=== PATIENT | female | born 1970 | race Caucasian/White ===

== ENCOUNTER 2018-05-26 03:23 | Emergency (ER) | payer OTHER, MEDICARE ==
[~2018-05-26] VITALS: Ht 175.3 cm; Wt 83.9 kg
--- NOTE | 2018-05-26 04:40 | ED HEADACHE COMPLAINT ---
History of Present Illness General Chief Complaint: Headache Stated Complaint: MIGRAINE Source: patient, family, old records Exam Limitations: no limitations Vital Signs & Intake/Output Vital Signs & Intake/Output Vital Signs Date Time Temp Pulse Resp B/P B/P Pulse O2 O2 Flow FiO2 Mean Ox Delivery Rate 05/26 0613 96.6 05/26 0532 96.6 82 20 129/72 96 Room Air 05/26 0330 98.4 88 18 142/88 99 Room Air Allergies Coded Allergies: Penicillins (UNKNOWN 05/26/18) ketorolac (From TORADOL) (UJNKNOWN 05/26/18) prochlorperazine (From COMPAZINE) (UNKNOWN 05/26/18) Reconcile Medications Hydromorphone HCl (Dilaudid) 2 MG TABLET 1-2 TAB PO Q4H PRN pain Triage Note: TRIAGE: PATIENT TO ER FROM HOME REPORTING +MIGRAINE PAST FEW HOURS, HX OF SAME. REPORTS HAS 2 NEUROLOGISTS IN [place] AND 2 IN [place]. TAKES [facility]ICO Q MONTH FOR HX HEMOPALEGIC MIGRAINES. REPORTS USUALLY GET RELIEF W "FLUIDS, BENADRYL, DILAUDID AND PHENERGAN." +NAUSEA AND VOMITTING. REPORTS IS CURRENTLY ON DISABILITY FOR SAME. Triage Nurses Notes Reviewed? yes Onset: Just prior to arrival Duration: hour(s):, constant, continues in ED, getting worse Timing: recent history Quality/Severity: severe, constant, throbbing Head Injury Location: frontal, temporal No Modifying Factors: none Associated Symptoms: nausea/vomiting, numbness in legs/feet LMP (ages 10-50): unknown : No Patient currently breastfeeds: No HPI: Several hours prior to admission patient awoke with typical hemiplegic migraine with left retro-orbital sharp throbbing pain and tingling in the upper and lower extremity. She also complains of photophobia and nausea. She denies fever chills vomiting diarrhea chest pain cough shortness of breath dysuria rash bleeding. Past History Travel History Traveled to [place] past 21 day No Medical History Any Pertinent Medical History? see below for history Neurological: HEMOPALEGIC MIGRAINES EENT: NONE Cardiovascular: NONE Respiratory: NONE Gastrointestinal: NONE Hepatic: NONE Renal: NONE Musculoskeletal: NONE Psychiatric: NONE Endocrine: NONE Blood Disorders: NONE Cancer(s): NONE [employer]ER/Reproductive: NONE Surgical History Surgical History: non-contributory Psychosocial History What is your primary language Luxembourgish Tobacco Use: Quit >30 days ago Family History Hx Contributory? No Review of Systems Review of Systems Constitutional: Reports: no symptoms. Eyes: Reports: no symptoms. Ears, Nose, Throat, Mouth: Reports: no symptoms. Respiratory: Reports: no symptoms. Cardiovascular: Reports: no symptoms. Gastrointestinal/Abdominal: Reports: see HPI, nausea. Genitourinary: Reports: no symptoms. Musculoskeletal: Reports: no symptoms. Skin: Reports: no symptoms. Neurological/Psychological: Reports: see HPI, headache, numbness. Hematologic/Endocrine: Reports: no symptoms. Endocrine: Reports: no symptoms. Immunologic/Allergic: Reports: no symptoms. All Other Systems: Reviewed and Negative Physical Exam Physical Exam General Appearance: well developed/nourished, alert, awake, anxious, severe distress, obese Head: atraumatic, normal appearance Eyes: Bilateral: normal appearance, PERRL, EOMI. Ears, Nose, Throat: normal pharynx, normal ENT inspection, hearing grossly normal Neck: normal inspection, supple, full range of motion, trachea midline Respiratory: normal breath sounds, chest non-tender, no respiratory distress, quiet respiration, lungs clear Cardiovascular: regular rate/rhythm, normal peripheral pulses, norml femoral pulses equa Gastrointestinal: normal bowel sounds, soft, non-tender, no organomegaly Back: normal inspection, normal range of motion Extremities: normal inspection, normal capillary refill, normal range of motion, no edema Psychiatric: awake, alert, oriented x 3 Cranial Nerves: normal hearing, normal speech, PERRL Coordination/Gait: normal finger to nose, normal gait Motor/Sensory: no motor/sensory deficits Reflexes: 2+: bicep (R), bicep (L). Skin: intact, normal color, warm/dry Lymphatic: no anterior cervical isma Core Measures Sepsis Present: No Sepsis Focused Exam Completed? No Progress Differential Diagnosis: cluster BOO, migraine BOO, tension BOO Plan of Care: Current Medications Sig/Jamee Start time Last Medication Dose Stop Time Status Admin Hydromorphone HCl 1 MG ONCE ONE 05/26 530 [facility] 05/26 (Dilaudid) 05/26 0531 0557 Promethazine HCl 25 MG ONCE ONE 05/26 530 [facility] 05/26 (Phenergen) 05/26 531 0557 Departure Departure Disposition: HOME OR SELF CARE Condition: Stable Clinical Impression Primary Impression: Migraine Referrals: Unknown (PCP/Family) Departure Forms: Customer Survey General Discharge Information Prescriptions: Current Visit Scripts Hydromorphone HCl (Dilaudid) 1-2 TAB PO Q4H PRN pain #10 TAB
[2018-05-26 05:32] VITALS: BP 129/72
[2018-05-26] MEDS ORDERED: DILAUDID2 M1 PO (06:21)
== END 2018-05-26 06:31 ==
LOC: ERH 03:23
DX: G43.909 Migraine, unspecified, not intractable, without status migrainosus (principal); R20.2 Paresthesia of skin; Z87.891 Personal history of nicotine dependence
CPT/HCPCS: 96361; 96374; 96375; 96376; 99291; J0131; J1200; J2550